=== PATIENT | female | born 1990 | race Caucasian/White ===

== ENCOUNTER 2017-10-13 01:15 | Observation (INO) | payer OTHER ==
[2017-10-13] MEDS ORDERED: NS 1,000 ML IV ONE ×2 (01:46→02:54)
[2017-10-13] MEDS ORDERED: ONDANSETRON 4 MG/2 ML VIAL IVP ONE ×2 (01:46→04:17)
[2017-10-13] MEDS ORDERED: HYDROmorphONE/DILAUDID 1 MG/ML INJ IVP ONE ×2 (01:46→03:10)
--- NOTE | 2017-10-13 01:49 | EDPHY ---
H & P Stated Complaint: Lower abdominal pain, flank pain, N/V Time Seen by Provider: 10/13/17 01:42 HPI/ROS: Chief Complaint: Abdominal pain HPI: 26-year-old woman developed right lower abdominal pain about 7 o'clock this evening while she was hiking. Pain was sudden in onset. It has been getting progressively worse. Does not have a history of similar pain in the past. She has never been gait. It last menstrual. Was unknown as she has a Mirena IUD in place. No vaginal discharge or bleeding. No urinary urgency or frequency. Some nausea vomiting. No diarrhea or constipation. Pain is a 9/ 10. There are no aggravating or alleviating factors. ROS: 10 point Review of Systems is negative except as noted in the HPI. PMH: Denies Social History: No smoking, occasional alcohol, occasional marijuana Family History: non-contributory Physical Exam: Gen: Awake, Alert, No Distress HEENT: Nose: no rhinorrhea Eyes: PERRLA, EOMI Mouth: Moist mucosa Neck: Supple, no JVD Chest: nontender, lungs clear to auscultation Heart: S1, S2 normal, no murmur Abd: Soft, left lower quadrant tenderness no right lower quadrant tenderness, primarily at McBurney's point, there is guarding Back: no CVA tenderness, no midline tenderness Ext: no edema, non-tender Skin: no rash Neuro: CN II-XII intact, Sensation grossly intact, Strength 5/5 in bilateral upper and lower extremities - Personal History Current Tetanus/Diphtheria Vaccine: Yes Current Tetanus Diphtheria and Acellular Pertussis (TDAP): Yes - Medical/Surgical History Hx Asthma: No Hx Chronic Respiratory Disease: No Hx Diabetes: No Hx Cardiac Disease: No Hx Renal Disease: No Hx Cirrhosis: No Hx Alcoholism: No Hx HIV/AIDS: No Hx Splenectomy or Spleen Trauma: No - Social History Smoking Status: Never smoked Constitutional: Initial Vital Signs Temperature (C) 36.8 C 10/13/17 01:23 Heart Rate 82 10/13/17 01:23 Respiratory Rate 18 10/13/17 01:23 Blood Pressure 96/70 L 10/13/17 01:23 O2 Sat (%) 99 10/13/17 01:23 O2 Delivery Mode Room Air O2 (L/minute) 2 Allergies/Adverse Reactions: No Known Allergies Allergy (Unverified 10/13/17 01:22) Home Medications: Medication Instructions Recorded NK [No Known Home Meds] 10/13/17 Medical Decision Making - Diagnostics Imaging Results: Abdominal ultrasound-appendix not visualized Pelvic ultrasound, there is some free fluid. IUD is in place. There is no torsion. There is normal flow to the ovaries. There is no ovarian cyst. No hydro. CT scan of the abdomen pelvis: Nonvisualized appendix. Stool in right colon pelvis. Some fluid in the right pelvis. Studies interpreted by Dr. Wen. ED Course/Re-evaluation: 0245 patient's pain is improved, 3 to 4/10. She does have a leukocytosis with no left shift. She is not . Urinalysis is negative. Am awaiting ultrasound results. There is some free fluid on the ultrasound however the appendix not visualized. Patient is continuing to have pain. Re-dose of Dilaudid ordered. She is tender right lower quadrant. Will obtain CT scan to evaluate for possibility of appendicitis. Patient pain is improved. The appendix is not visualized on the CT scan. Again there is some free fluid. Patient's did admit she did take some Tums earlier tonight. Given the sudden onset of the pain and fluid in Winter she had a ruptured ovarian cyst. There is not visualize the appendix but there are no secondary findings to suggest infection inflammation at this time. Give her some Toradol here and reassess or pain. Patient is still complaining of being uncomfortable. On repeat examination she has persistent right lower quadrant abdominal pain with guarding. I have discussed with Dr. Mohan, general surgery. He will evaluate the patient in the emergency department. Patient to be admitted to to the floor under Dr. Starr with for continued monitoring and re-evaluation. - Data Points Laboratory Results: Laboratory Results 10/13/17 01:36 10/13/17 01:36 10/13/17 10/13/17 10/13/17 01:36 01:36 01:36 WBC RBC Hgb Hct MCV MCH MCHC RDW Plt Count MPV Neut % (Auto) Lymph % (Auto) Winston % (Auto) Eos % (Auto) Baso % (Auto) Nucleat RBC Rel Count Absolute Neuts (auto) Absolute Lymphs (auto) Absolute Monos (auto) Absolute Eos (auto) Absolute Basos (auto) Absolute Nucleated RBC Immature Gran % Immature Gran # Sodium 140 mEq/L mEq/L (135-145) Potassium 3.9 mEq/L mEq/L (3.5-5.2) Chloride 103 mEq/L mEq/L (97-110) Carbon Dioxide 22 mEq/l mEq/l (22-31) Anion Gap 15 mEq/L mEq/L (8-16) BUN 13 mg/dL mg/dL (7-23) Creatinine 0.7 mg/dL mg/dL (0.6-1.0) Estimated GFR > 60 Glucose 113 mg/dL H mg/dL (70-100) Calcium 10.3 mg/dL mg/dL (8.5-10.4) Beta HCG, Qual NEGATIVE Urine Color YELLOW Urine Appearance HAZY Urine pH 5.0 (5.0-7.5) Ur Specific [place] 1.021 (1.002-1.030) Urine Protein NEGATIVE (NEGATIVE) Urine Ketones NEGATIVE (NEGATIVE) Urine Blood NEGATIVE (NEGATIVE) Urine Nitrate NEGATIVE (NEGATIVE) Urine Bilirubin NEGATIVE (NEGATIVE) Urine Urobilinogen NEGATIVE EU EU (0.2-1.0) Ur Leukocyte Esterase NEGATIVE (NEGATIVE) Urine Glucose NEGATIVE (NEGATIVE) 10/13/17 01:36 WBC 15.13 10^3/uL H 10^3/uL (3.80-9.50) RBC 4.97 10^6/uL 10^6/uL (4.18-5.33) Hgb 15.2 g/dL g/dL (12.6-16.3) Hct 44.1 % % (38.0-47.0) MCV 88.7 fL fL (81.5-99.8) MCH 30.6 pg pg (27.9-34.1) MCHC 34.5 g/dL g/dL (32.4-36.7) RDW 12.1 % % (11.5-15.2) Plt Count 288 10^3/uL 10^3/uL (150-400) MPV 10.4 fL fL (8.7-11.7) Neut % (Auto) 67.4 % % (39.3-74.2) Lymph % (Auto) 27.4 % % (15.0-45.0) Winston % (Auto) 4.3 % L % (4.5-13.0) Eos % (Auto) 0.3 % L % (0.6-7.6) Baso % (Auto) 0.2 % L % (0.3-1.7) Nucleat RBC Rel Count 0.0 % % (0.0-0.2) Absolute Neuts (auto) 10.21 10^3/uL H 10^3/uL (1.70-6.50) Absolute Lymphs (auto) 4.14 10^3/uL H 10^3/uL (1.00-3.00) Absolute Monos (auto) 0.65 10^3/uL 10^3/uL (0.30-0.80) Absolute Eos (auto) 0.04 10^3/uL 10^3/uL (0.03-0.40) Absolute Basos (auto) 0.03 10^3/uL 10^3/uL (0.02-0.10) Absolute Nucleated RBC 0.00 10^3/uL 10^3/uL (0-0.01) Immature Gran % 0.4 % % (0.0-1.1) Immature Gran # 0.06 10^3/uL 10^3/uL (0.00-0.10) Sodium Potassium Chloride Carbon Dioxide Anion Gap BUN Creatinine Estimated GFR Glucose Calcium Beta HCG, Qual Urine Color Urine Appearance Urine pH Ur Specific [place] Urine Protein Urine Ketones Urine Blood Urine Nitrate Urine Bilirubin Urine Urobilinogen Ur Leukocyte Esterase Urine Glucose Medications Given: Discontinued Medications Hydromorphone HCl (Dilaudid) 0.5 mg IVP EDNOW ONE Stop: 10/13/17 01:47 Last Admin: 10/13/17 01:54 Dose: 0.5 mg Hydromorphone HCl (Dilaudid) 0.5 mg IVP EDNOW ONE Stop: 10/13/17 02:04 Last Admin: 10/13/17 02:19 Dose: 0.5 mg Hydromorphone HCl (Dilaudid) 0.5 mg IVP EDNOW ONE Stop: 10/13/17 03:11 Last Admin: 10/13/17 03:14 Dose: 0.5 mg Sodium Chloride (Ns) 1,000 mls @ 0 mls/hr IV ONCE ONE; Wide Open PRN Reason: Protocol Stop: 10/13/17 01:47 Last Admin: 10/13/17 01:52 Dose: 1,000 mls Sodium Chloride (Ns) 1,000 mls @ 0 mls/hr IV EDNOW ONE; Wide Open PRN Reason: Protocol Stop: 10/13/17 02:55 Last Admin: 10/13/17 02:57 Dose: 1,000 mls Ketorolac Tromethamine (Toradol) 15 mg IVP EDNOW ONE Stop: 10/13/17 03:51 Last Admin: 10/13/17 04:01 Dose: 15 mg Ondansetron HCl (Zofran) 4 mg IVP EDNOW ONE Stop: 10/13/17 01:47 Last Admin: 10/13/17 01:53 Dose: 4 mg Ondansetron HCl (Zofran) 4 mg IVP EDNOW ONE Stop: 10/13/17 04:18 Last Admin: 10/13/17 04:22 Dose: 4 mg Departure - Departure Disposition: [facility] Inpatient Acute Clinical Impression: Abdominal pain Condition: Fair Referrals: NONE *PRIMARY CARE P,. [Primary Care Provider] - As per Instructions
[2017-10-13] MEDS ORDERED: HYDROmorphONE/DILAUDID 2 MG/ML INJ ONE ×2 (01:50→13:56)
[2017-10-13 01:56] LABS: PLATELET COUNT 288 10^3/uL (150-400)
[2017-10-13] MEDS ORDERED: HYDROmorphONE/DILAUDID 2 MG/ML INJ IVP ONE (02:03)
[2017-10-13] MEDS ORDERED: IOPAMIDOL (ISOVUE-300) 100 ML BTL ONE (03:14)
[2017-10-13] MEDS ORDERED: KETOROLAC 15 MG/1 ML SDV IVP ONE (03:50)
--- NOTE | 2017-10-13 06:23 | GHP ---
[f rep st] HISTORY AND PHYSICAL DATE OF ADMISSION: 10/13/2017 CHIEF COMPLAINT: Right lower quadrant pain. PRESENT ILLNESS: Twelve hours of abdominal pain in this 26-year-old female, began periumbilically, m igrated to the right lower quadrant. She vomited twice. She states she has had previous episodes of pain which she ignored at home and dissipated without specific treatment. She also seen at the [facility] a year ago, diagnosed with PID, and sent home on antibiotics, which she improved upon. It is unclear how that diagnosis was made and she states she has been cultured multiple times for chlamydia, et cetera, all of which have been negative. The patient also has an IUD in place, potentially increasing her chances of developing PID. She is in a monogamous relationship. ALLERGIES: None. CURRENT MEDICATIONS: IUD only. REVIEW OF SYSTEMS: Denies asthma, heart trouble, diabetes, epilepsy, rheumatic fever. HABITS: Nonsmoker. No alcohol use. PREVIOUS SURGERY: None. 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 PHYSICAL EXAM: GENERAL APPEARANCE: A very slender female. HEENT: No scleral icterus. Pharynx marcelo ar. NECK: Supple without adenopathy. LUNGS: Clear. HEART: Normal S1, S2 without murmur. ABDOME N: Soft, scaphoid. No guarding. Some tenderness in the right lower quadrant. No rebound. DIAGNOSTIC STUDIES: An ultrasound showed no ovarian cyst or other obvious pelvic pathology nor large amount of free fluid. A CT scan was done, which is of poor quality because of a paucity of body fat , but no inflammatory process is seen in the right lower quadrant nor ovarian cyst and no appendix ca n be identified. [place] [address]. ASSESSMENT: Clinical picture compatible with acute appendicitis with leukocytosis, persistent right lower quadrant pain, which began periumbilically. The patient has been narcotized and that limits my physical exam. The unremarkable CT scan is somewh at at odds with clinical diagnosis of appendicitis without any inflammatory process seen, although e CT is obviously not 100% accurate. RECOMMENDATIONS/PLAN: Admit. IV hydration. Reexamine several hours off narcotics and better then yannick oakley a decision about whether to treat this as appendicitis either medically, surgically versus contin ued observation. /[id number]/MODL
[2017-10-13] MEDS: LR 1,000 ML IV SCH ×2 (06:43→12:23)
[2017-10-13] MEDS ORDERED: cefOXitin SODIUM 2 GM in STERILE WATER INJ 21 ML IV ONE (10:26)
[2017-10-13] MEDS ORDERED: ONDANSETRON 4 MG/2 ML VIAL IVP PRN ×2 (10:33→13:52)
--- NOTE | 2017-10-13 10:33 | SOAPPROG ---
SOAP Progress Note Assessment/Plan: Assessment: re-evaluated patient at request of Dr. Mohan. Pain increasing - now at a "5 ". Has not received pain meds since this am. No additional emesis since arrival to floor O: Lying in bed CTAB RRR BS hypoactive. Abdomen warm. Positive Rosvig. Tender over McBurneys point A/P: ? Appendicitis. CT not visualized, no secondary signs but elevated WBC and exam/history convincing Risks and benefits discussed NPO Plan: 10/13/17 10:28 Objective: Vital Signs Temp Pulse Resp BP Pulse Ox 36.5 C 57 L 16 105/60 97 10/13/17 07:37 10/13/17 07:37 10/13/17 07:37 10/13/17 07:37 10/13/17 07:37 10/12/17 10/13/17 10/14/17 05:59 05:59 05:59 Intake Total 1999 Balance 1999 ICD10 Worksheet Patient Problems: Problems Problem Status Onset Abdominal pain Acute
[2017-10-13] MEDS ORDERED: BUPIVACAINE 0.5% 30 ML SDV ONE (11:04)
[2017-10-13] MEDS ORDERED: fentaNYL 100 MCG/2 ML INJ ONE ×3 (12:07→13:55)
[2017-10-13] MEDS: fentaNYL 100 MCG/2 ML INJ IVP PRN ×2 (12:09→12:24)
[2017-10-13] MEDS ORDERED: MIDAZOLAM 2 MG/2 ML VIAL ONE (12:26)
[2017-10-13] MEDS ORDERED: MIDAZOLAM 2 MG/2 ML VIAL IVP ONE (12:26)
--- NOTE | 2017-10-13 12:28 | PDANEPAE ---
ANE History of Present Illness appendicitis ANE Past Medical History - Cardiovascular History Hx Hypertension: No Hx Arrhythmias: No Hx Chest Pain: No Hx Coronary Artery / Peripheral Vascular Disease: No Hx CHF / Valvular Disease: No Hx Palpitations: No - Pulmonary History Hx COPD: No Hx Asthma/Reactive Airway Disease: No Hx Recent Upper Respiratory Infection: No Hx Oxygen in Use at Home: No Hx Sleep Apnea: No Sleep Apnea Screening Result - Last Documented: Positive - Endocrine History Hx Diabetes: No Hypothyroid: No Hyperthyroid: No ANE Review of Systems Review of Systems: - Exercise capacity Exercise capacity: >=4 METS - Systems Constitutional: Reports: fever, malaise Gastrointestinal: Reports: vomitting, abdominal pain ANE Patient History - Allergies Allergies/Adverse Reactions: No Known Allergies Allergy (Unverified 10/13/17 01:22) - Home Medications Home Medications: NK [No Known Home Meds] 10/13/17 [Last Taken Unknown] - NPO status NPO Status: no food or drink >8 hours NPO Since - Liquids (Date): 10/13/17 NPO Since - Liquids (Time): 00:00 NPO Since - Solids (Date): 10/12/17 NPO Since - Solids (Time): 22:00 - Anes Hx Anes Hx: no prior problems - Smoking Hx Smoking Status: Never smoked - Alcohol Use Alcohol Use: Occasionally - Family Anes Hx Family Anes Hx: none ANE Labs/Vital Signs - Labs Result Diagrams: 10/13/17 01:36 10/13/17 01:36 - Vital Signs Vital Signs: reviewed preoperatively; see RN documention for details Blood Pressure: 121/73 Heart Rate: 57 Respiratory Rate: 16 O2 Sat (%): 96 Height: 170.18 cm Weight: 55.338 kg ANE Physical Exam - Airway Neck exam: FROM Mallampati Score: Class 1 Mouth exam: normal dental/mouth exam - Pulmonary Pulmonary: no respiratory distress - Cardiovascular Cardiovascular: regular rate and rhythym - ASA Status ASA Status: I, E ANE Anesthesia Plan Anesthesia Plan: general endotracheal anesthesia
[2017-10-13] MEDS ORDERED: LIDOCAINE 2% 5 ML SDV ONE (12:38)
[2017-10-13] MEDS ORDERED: PROPOFOL 200 MG/20 ML VIAL ONE (12:38)
[2017-10-13] MEDS ORDERED: ROCURONIUM 50 MG/5 ML VIAL ONE (12:38)
[2017-10-13] MEDS ORDERED: DEXAMETHASONE 4 MG/ML VIAL ONE (12:48)
[2017-10-13] MEDS ORDERED: KETOROLAC 30 MG/1 ML SDV ONE (12:48)
[2017-10-13] MEDS ORDERED: ONDANSETRON 4 MG/2 ML VIAL ONE ×2 (12:48→14:25)
--- NOTE | 2017-10-13 13:41 | POSTOPPROG ---
Post Op Note Date of Operation: 10/13/17 Surgeon: Randi Landin Anesthesiologist: carlyn Anesthesia: GET(General Endotracheal) Pre-op Diagnosis: abdominal pain Post-op Diagnosis: appendicitis Indication: 26 yo with appendicitis Procedure: lap appy Findings: inflamed appendix Inf/Abcess present in the surg proc area at time of surgery?: No Depth: Superfical (Skin SQ) EBL: Minimal Specimen(s): appendix
[2017-10-13] MEDS ORDERED: ACETAMINOPHEN 325 MG TAB PO PRN (13:42)
[2017-10-13] MEDS ORDERED: PROMETHAZINE HCL 25 MG/ML INJ IVP PRN (13:52)
[2017-10-13] MEDS ORDERED: ACETAMINOPHEN 500 MG TAB PO PRN (13:52)
[2017-10-13] MEDS ORDERED: fentaNYL 100 MCG/2 ML INJ IVP PRN (13:52)
[2017-10-13] MEDS ORDERED: HYDROmorphONE/DILAUDID 2 MG/ML INJ IVP PRN (13:52)
[2017-10-13] MEDS ORDERED: oxyCODONE IR 5 MG TAB PO PRN (13:52)
[2017-10-13] MEDS ORDERED: ALBUTEROL 3 ML DEYVIAL IH PRN (13:52)
[2017-10-13] MEDS ORDERED: NALOXONE HCL 0.4 MG/ML INJ IVP PRN (13:52)
[2017-10-13] MEDS ORDERED: HYDROCODONE/APAP 5/325 TAB PO PRN (13:52)
--- NOTE | 2017-10-13 13:53 | POSTANESTH ---
Post Anesthetic Evaluation Cardiovascular Status: Normal, Stable Respiratory Status: Normal, Stable Level of Consciousness/Mental Status: Can Participate in Eval Pain Control: Adequate, Prn Tx Ordered Nausea/Vomiting Control: Adequate, Prn Tx Ordered Complications Possibly Related to Anesthesia: None Noted
[2017-10-13] MEDS: HYDROCODONE/APAP 5/325 TAB PO PRN ×3 (15:35→22:07)
[2017-10-13] MEDS ORDERED: HYDROmorphONE/DILAUDID 1 MG/ML INJ IVP PRN (16:00)
[2017-10-13] MEDS: HYDROmorphone HCL/NS 0.5 MG/ML SYR IVP PRN ×2 (16:20→20:04)
[2017-10-13] MEDS: KETOROLAC 15 MG/1 ML SDV IVP SCH ×2 (18:02→23:40)
--- NOTE | 2017-10-13 18:13 | SOAPPROG ---
SOAP Progress Note Assessment/Plan: Assessment: s/p lap appy doing well dc home if pain controlled, tolerates diet incisions cdi, abdomen soft feeling better than before surgery Plan: 10/13/17 10:28 10/13/17 18:13 Objective: Vital Signs Temp Pulse Resp BP Pulse Ox 36.9 C 50 L 14 106/53 L 91 L 10/13/17 17:02 10/13/17 17:02 10/13/17 17:02 10/13/17 17:02 10/13/17 17:02 10/12/17 10/13/17 10/14/17 05:59 05:59 05:59 Intake Total 2750 Output Total 5 Balance 2745 ICD10 Worksheet Patient Problems: Problems Problem Status Onset Abdominal pain Acute
[2017-10-13] MEDS ORDERED: HYDROmorphone HCL 0.5 MG/0.5 ML SYR IVP PRN (20:00)
--- NOTE | 2017-10-13 21:57 | GOP ---
[f rep st] OPERATIVE REPORT DATE OF OPERATION: 10/13/2017 SURGEON: Randi Landin MD ANESTHESIA: General. ANESTHESIOLOGIST: Guido Fitzgerald MD PREOPERATIVE DIAGNOSIS: Abdominal pain. POSTOPERATIVE DIAGNOSIS: Appendicitis. PROCEDURE PERFORMED: Laparoscopic appendectomy. FINDINGS: Inflamed, enlarged appendix. SPECIMENS: Appendix. ESTIMATED BLOOD LOSS: Minimal. INDICATIONS: The patient is a 26-year-old woman who had periumbilical pain that localized to the rig ht lower quadrant. She had a transvaginal ultrasound and a CT scan performed of her abdomen and pelv is. The appendix was not visualized. There was not secondary findings of appendicitis. Her white c ount was 15,000. Her pain continued and so I took her to the operating room. DESCRIPTION OF PROCEDURE: The patient was brought into the operating room, placed supine on the tabl e, and general anesthesia was administered. Her abdomen was prepped and draped in the usual sterile fashion. I infiltrated all sites with 0.5% Marcaine prior to making incision. I elevated her umbili cus and made an incision. I inserted the Veress needle. Passed the hang drop test. Her abdomen ins ufflated easily to a pressure of 15 mmHg. Under direct vision, I placed a 5 mm trocar with a camera at this site. There were no injuries from Veress needle placement. Under direct vision, I placed a 5 mm suprapubic trocar and a 10 mm trocar in the left lower quadrant. I explored her abdomen. There was a small amount of free fluid in her pelvis. Her cecum was enlarged. I retracted this medially and saw an inflamed tip of the appendix. The appendix was very long. I dissected the mesoappendix w ith the Harmonic Scalpel. I paid particular attention to the cecum to protect it from harm. Once th e appendix was freed, I was able to transect the base of it with an EndoGIA 45 white load stapler. H emostasis was achieved at the staple line. I placed the appendix in the EndoCatch bag and retrieved it via the 10 mm trocar. I used Ray-Tecs to absorb the additional pelvic fluid. I explored her abdo men. I removed the trocars under direct vision and allowed the abdomen to desufflate. I closed the fascia at the 10 mm trocar site with 0 Vicryl. I closed skin with 4 Monocryl. Dermabond applied. S he was awakened in the operating room, extubated, transferred to PACU in stable condition. /[id number]/MODL
[2017-10-14] MEDS: HYDROCODONE/APAP 5/325 TAB PO PRN ×2 (05:51→10:39)
[2017-10-14] MEDS: KETOROLAC 15 MG/1 ML SDV IVP SCH (05:52)
--- NOTE | 2017-10-14 10:20 | SOAPPROG ---
SOAP Progress Note Assessment/Plan: Assessment: s/p lap appy doing well dc home incisions cdi, abdomen soft feeling better than before surgery still sensitive on abdomen brushing teeth in street clothes Plan: 10/13/17 10:28 10/13/17 18:13 10/14/17 10:20 Objective: Vital Signs Temp Pulse Resp BP Pulse Ox 36.6 C 50 L 14 112/70 97 10/13/17 22:25 10/13/17 22:25 10/13/17 22:25 10/13/17 22:25 10/13/17 22:25 10/13/17 10/14/17 10/15/17 05:59 05:59 05:59 Intake Total 3350 Output Total 5 Balance 3345 ICD10 Worksheet Patient Problems: Problems Problem Status Onset Abdominal pain Acute
[2017-10-14 11:42] VITALS: BP 105/69
== END 2017-10-14 11:44 | disposition home or self-care (01) ==
LOC: FOB 06:53
PROVIDERS: ADMIT Surgery; ATTEND Surgery
PROC: 0DTJ4ZZ Resection of Appendix, Percutaneous Endoscopic Approach (ICD-10-PCS; principal; 2017-10-13 12:30)
DX: K35.80 Unspecified acute appendicitis (principal); Z97.5 Presence of (intrauterine) contraceptive device
CPT/HCPCS: 44970; 74177; 76705; 76856; G0378; 96374; J0694; J1100; J1170; J1885; J2250; J2270; J2405; J2704; J3010; Q9967

== ENCOUNTER 2017-10-14 23:30 | Emergency (ER) | payer OTHER ==
[2017-10-14] MEDS ORDERED: HYDROmorphONE/DILAUDID 2 MG/ML INJ IVP ONE (23:42)
[2017-10-14] MEDS ORDERED: NS 1,000 ML IV ONE ×2 (23:42)
[2017-10-14] MEDS ORDERED: ONDANSETRON 4 MG/2 ML VIAL IVP ONE (23:42)
--- NOTE | 2017-10-14 23:45 | EDPHY ---
H & P Stated Complaint: appdenix removes yesterday, nausea, cant poop Time Seen by Provider: 10/14/17 23:44 HPI/ROS: HPI CHIEF COMPLAINT: Nausea vomiting abdominal pain recent appendectomy HISTORY OF PRESENT ILLNESS: Patient otherwise healthy 26-year-old female she recently had an appendectomy performed on Monday or yesterday, discharge this morning, she has been taking Nye for pain control at home. She comes emergency room because she states she is constipated additionally having worsening abdominal pain nausea vomiting. No fever. Denies chest pain or shortness of breath. Past Medical History: No significant medical history Past Surgical History: Appendectomy Social History: Denies daily use of drugs alcohol tobacco. Family History: Noncontributory ROS REVIEW OF SYSTEMS: A comprehensive 10 point review of systems is otherwise negative aside from elements mentioned in the history of present illness. Exam Constitutional appears well nontoxic no acute distress, triage nursing summary reviewed, vital signs reviewed, awake/alert. Eyes normal conjunctivae and sclera, EOMI, PERRLA. HENT normal inspection, atraumatic, moist mucus membranes, no epistaxis, neck supple/ no meningismus, no raccoon eyes. Respiratory clear to auscultation bilaterally, normal breath sounds, no respiratory distress, no wheezing. Cardiovascular rate normal, regular rhythm, no murmur, no edema, distal pulses normal. Gastrointestinal hypoactive bowel sounds. Laparoscopic sites clean dry and intact. Genitourinary no CVA tenderness. Musculoskeletal no midline vertebral tenderness, full range of motion, no calf swelling, no tenderness of extremities, no meningismus, good pulses, neurovascularly intact. Skin laparoscopic abdominal sites appear clean, dry and intact. pink, warm, & dry, no rash, skin atraumatic. Neurologic awake, alert and oriented x 3, AAOx3, moves all 4 extremities equally, motor intact, sensory intact, CN II-XII intact, normal cerebellar, normal vision, normal speech. Psychiatric normal mood/affect. Heme/Lymph/Immune no lymphadenopathy. Differential diagnosis includes but is not limited to and in no particular order : Bowel obstruction, appendicitis, gallbladder disease, diverticulitis, colitis , enteritis, perforated viscus, gastritis, GERD, esophagitis, urinary tract infection, pyelonephritis, kidney stones Medical Decision Making: Plan for this patient IV establishment with IV fluid bolus, IV Zofran nausea, Dilaudid for pain control, KUB, electrolytes and blood work. Re-evaluate. Re-evaluation: 1239: Patient resting comfortably no acute distress. Abdomen is soft. She does feel better after IV fluids nausea medicine and Dilaudid. Blood work is reviewed. Additionally KUB shows no evidence of ileus or obstruction. Image interpreted myself. No free air. Shows rather large stool burden. 0325: Here in emergency room the patient had a bowel movement she is feeling much better. Her abdomen remained soft nontender she is not vomiting. I reviewed her KUB and blood work. KUB shows constipation no abnormal bowel gas pattern. Blood work is reassuring. She feels much better. Laparoscopic surgical sites are clean dry and intact. I discussed return precautions with her she understands return emergency room if develops worsening abdominal pain fever or vomiting. Source: Patient - Personal History LMP (Females 10-55): IUD In Place Current Tetanus Diphtheria and Acellular Pertussis (TDAP): Yes - Medical/Surgical History Hx Asthma: No Hx Chronic Respiratory Disease: No Hx Diabetes: No Hx Cardiac Disease: No Hx Renal Disease: No Hx Cirrhosis: No Hx Alcoholism: No Hx HIV/AIDS: No Hx Splenectomy or Spleen Trauma: No Other PMH: IUD, PID, appendix - Social History Smoking Status: Never smoked Constitutional: Initial Vital Signs Temperature (C) 36.3 C 10/14/17 23:33 Heart Rate 57 L 10/14/17 23:33 Respiratory Rate 18 10/14/17 23:33 Blood Pressure 132/80 H 10/14/17 23:33 O2 Sat (%) 95 10/14/17 23:33 O2 Delivery Mode Room Air Allergies/Adverse Reactions: No Known Allergies Allergy (Verified 10/14/17 23:34) Home Medications: Medication Instructions Recorded Hydrocodone/APAP 5/325 [Nye 1 tab PO Q4HRS PRN #20 tab 10/13/17 5/325 (*)] Ibuprofen 600 mg PO Q8H #30 tablet 10/13/17 Magnesium Citrate [Citrate of 296 ml PO DAILY #2 solution 10/15/17 Magnesia] Polyethylene Glycol 3350 [Miralax 17 gm PO DAILY #2 pkt 10/15/17 17 gm (*)] Medical Decision Making - Data Points Laboratory Results: Laboratory Results 10/14/17 23:42 10/14/17 23:42 10/14/17 10/14/17 10/14/17 23:42 23:42 23:42 WBC 9.06 10^3/uL 10^3/uL (3.80-9.50) RBC 4.60 10^6/uL 10^6/uL (4.18-5.33) Hgb 13.9 g/dL g/dL (12.6-16.3) Hct 41.1 % % (38.0-47.0) MCV 89.3 fL fL (81.5-99.8) MCH 30.2 pg pg (27.9-34.1) MCHC 33.8 g/dL g/dL (32.4-36.7) RDW 12.4 % % (11.5-15.2) Plt Count 241 10^3/uL 10^3/uL (150-400) MPV 10.5 fL fL (8.7-11.7) Neut % (Auto) 65.2 % % (39.3-74.2) Lymph % (Auto) 26.8 % % (15.0-45.0) [place] % (Auto) 6.7 % % (4.5-13.0) Eos % (Auto) 0.7 % % (0.6-7.6) Baso % (Auto) 0.2 % L % (0.3-1.7) Nucleat RBC Rel Count 0.0 % % (0.0-0.2) Absolute Neuts (auto) 5.90 10^3/uL 10^3/uL (1.70-6.50) Absolute Lymphs (auto) 2.43 10^3/uL 10^3/uL (1.00-3.00) Absolute Monos (auto) 0.61 10^3/uL 10^3/uL (0.30-0.80) Absolute Eos (auto) 0.06 10^3/uL 10^3/uL (0.03-0.40) Absolute Basos (auto) 0.02 10^3/uL 10^3/uL (0.02-0.10) Absolute Nucleated RBC 0.00 10^3/uL 10^3/uL (0-0.01) Immature Gran % 0.4 % % (0.0-1.1) Immature Gran # 0.04 10^3/uL 10^3/uL (0.00-0.10) Sodium 141 mEq/L mEq/L (135-145) Potassium 4.0 mEq/L mEq/L (3.5-5.2) Chloride 102 mEq/L mEq/L (97-110) Carbon Dioxide 24 mEq/l mEq/l (22-31) Anion Gap 15 mEq/L mEq/L (8-16) BUN 8 mg/dL mg/dL (7-23) Creatinine 0.7 mg/dL mg/dL (0.6-1.0) Estimated GFR > 60 Glucose 112 mg/dL H mg/dL (70-100) Calcium 9.1 mg/dL mg/dL (8.5-10.4) Total Bilirubin 0.8 mg/dL mg/dL (0.1-1.4) Conjugated Bilirubin 0.4 mg/dL mg/dL (0.0-0.5) Unconjugated Bilirubin 0.4 mg/dL mg/dL (0.0-1.1) AST 21 IU/L IU/L (14-46) ALT 26 IU/L IU/L (9-52) Alkaline Phosphatase 73 IU/L IU/L (38-126) Total Protein 6.8 g/dL g/dL (6.3-8.2) Albumin 4.1 g/dL g/dL (3.5-5.0) Lipase 81 IU/L IU/L (23-300) Beta HCG, Qual NEGATIVE Medications Given: Discontinued Medications Hydromorphone HCl (Dilaudid) 0.5 mg IVP EDNOW ONE Stop: 10/14/17 23:43 Last Admin: 10/15/17 00:02 Dose: 0.5 mg Sodium Chloride (Ns) 1,000 mls @ 0 mls/hr IV EDNOW ONE; Wide Open PRN Reason: Protocol Stop: 10/14/17 23:43 Last Admin: 10/15/17 00:00 Dose: 1,000 mls Sodium Chloride (Ns) 1,000 mls @ 0 mls/hr IV EDNOW ONE; Wide Open PRN Reason: Protocol Stop: 10/14/17 23:43 Last Admin: 10/15/17 00:01 Dose: 1,000 mls Ondansetron HCl (Zofran) 4 mg IVP EDNOW ONE Stop: 10/14/17 23:43 Last Admin: 10/15/17 00:01 Dose: 4 mg Departure - Departure Disposition: Home, Routine, Self-Care Clinical Impression: Constipation Qualifiers: Constipation type: unspecified constipation type Qualified Code(s): K59.00 - Constipation, unspecified Condition: Good Instructions: Constipation (ED) Additional Instructions: 1. Return emergency room if there is worsening abdominal pain fever or vomiting. 2. Drink lots of fluids. 3. Mag citrate and MiraLax as needed for constipation. 4. Return emergency room if there is worsening abdominal pain fever vomiting. Referrals: NONE *PRIMARY CARE P,. [Primary Care Provider] - As per Instructions Prescriptions: Magnesium Citrate [Citrate of Magnesia] 296 ml PO DAILY #2 solution Polyethylene Glycol 3350 [Miralax 17 gm (*)] 17 gm PO DAILY #2 pkt
[2017-10-14 23:50] LABS: PLATELET COUNT 241 10^3/uL (150-400)
[2017-10-15 03:37] VITALS: BP 105/61
== END 2017-10-15 03:37 | disposition home or self-care (01) ==
DX: K59.00 Constipation, unspecified (principal); E86.9 Volume depletion, unspecified
CPT/HCPCS: 96374; J1170; J2405